=== PATIENT | female | born 1955 | race Hispanic/Latino ===

== ENCOUNTER 2018-04-10 22:05 | Emergency (ER) | payer SELFPAY ==
[2018-04-10 22:59] LABS: Basophils % (Auto) 0.5 % (0.0-1.8); Eosinophils # (Auto) 0.3 K/mm3 (0.0-0.4); Eosinophils % (Auto) 4.1 % (0.0-4.3); Hematocrit 39.5 % (30.3-42.9); Hemoglobin 13.9 gm/dl (10.1-14.3); Lymphocytes % (Auto) 44.2 % (13.4-35.0); Mean Corpuscular HGB Conc 35 % (30-34); Mean Corpuscular Hemoglobin 31 pg (28-32); Mean Corpuscular Volume 87 fl (79-97); Monocytes # (Auto) 0.4 K/mm3 (0.0-0.8); Monocytes % (Auto) 5.9 % (0.0-7.3); Platelet Count 160 K/mm3 (140-440); Red Blood Count 4.53 M/mm3 (3.65-5.03); Red Cell Distribution Width 13.8 % (13.2-15.2)
[2018-04-10 23:11] LABS: BUN/Creatinine Ratio 25; Blood Urea Nitrogen 15 mg/dL (7-17); Calcium 8.9 mg/dL (8.4-10.2); Hemolysis Index 12
[2018-04-10] MEDS ORDERED: VITAMIN B-1 100 MG, FOLVITE 1 MG, INFUVITE 10 ML, MAGNESIUM SULFATE 2 GM in NACL 0.9% 1... IV ONE (23:28)
--- NOTE | 2018-04-10 23:46 | Emergency Department Report ---
HPI - General Chief Complaint: Psych Time Seen by Provider: 04/10/18 23:21 - HPI HPI: Room 17 The patient is a 62-year-old female presenting with a chief complaint of suicidal ideation and alcoholism. The patient states she has felt suicidal for months but has not actually attempted to harm herself. The patient states she is "tired of drinking" and that she wants to end her life because life is not worth living. The patient states she had a plan to overdose or medication. Patient denies any past attempts at harming herself. The patient consumes approximately 1 pint of alcohol daily and last consumed alcohol at 21:30 today Location: Mental status, see above Duration: "Months" Quality: Suicidal Severity: Severe Modifying factors: [see above] Context: [see above] Mode of transportation: [not driving] ED Past Medical Hx - Past Medical History Previous Medical History?: Yes Hx Hypertension: Yes Additional medical history: Depression, [place] Palsy - Surgical History Past Surgical History?: Yes Additional Surgical History: Double mastectomy, hysterectomy - Family History Family history: no significant - Social History Smoking Status: Current Every Day Smoker (1 pack per day) Substance Use Type: Alcohol (1 pint of alcohol every other day) ED Review of Systems ROS: Stated complaint: MH EVAL Other details as noted in HPI Constitutional: no symptoms reported Eyes: denies: eye pain ENT: denies: throat pain Respiratory: no symptoms reported Cardiovascular: denies: chest pain Endocrine: no symptoms reported Gastrointestinal: denies: abdominal pain Genitourinary: denies: dysuria Musculoskeletal: denies: back pain Neurological: denies: headache Psychiatric: suicidal thoughts Physical Exam - Physical Exam Vital Signs: Vital Signs 04/10/18 22:08 Temperature 98.3 F Pulse Rate 105 H Respiratory 20 Rate Blood Pressure 121/61 O2 Sat by Pulse 93 Oximetry Physical Exam: GENERAL: The patient is well-developed well-nourished female lying on stretcher not appearing to be in acute distress. [] HEENT: Normocephalic. Atraumatic. Extraocular motions are intact. Patient has moist mucous membranes. NECK: Supple. Trachea midline CHEST/LUNGS: Clear to auscultation. There is no respiratory distress noted. HEART/CARDIOVASCULAR: Regular. There is no tachycardia. There is no gallop rub or murmur. ABDOMEN: Abdomen is soft, nontender. Patient has normal bowel sounds. There is no abdominal distention. SKIN: There is no rash. There is no edema. There is no diaphoresis. NEURO: The patient is awake, alert, and oriented. The patient is cooperative. The patient has normal speech MUSCULOSKELETAL: There is no evidence of acute injury. ED Course Vital Signs 04/10/18 22:08 Temperature 98.3 F Pulse Rate 105 H Respiratory 20 Rate Blood Pressure 121/61 O2 Sat by Pulse 93 Oximetry ED Medical Decision Making - Lab Data Result diagrams: 04/10/18 22:36 04/10/18 22:36 Laboratory Tests 04/10/18 04/10/18 04/10/18 22:36 22:36 22:36 WBC RBC Hgb Hct MCV MCH MCHC RDW Plt Count Lymph % (Auto) [place] % (Auto) Eos % (Auto) Baso % (Auto) Lymph # Shelby # Eos # Baso # Seg Neutrophils % Seg Neutrophils # Sodium 144 Potassium 4.1 Chloride 103.9 Carbon Dioxide 24 Anion Gap 20 BUN 15 Creatinine 0.6 L Estimated GFR > 60 BUN/Creatinine Ratio 25 Glucose 125 H Calcium 8.9 Total Bilirubin Direct Bilirubin Indirect Bilirubin AST ALT Alkaline Phosphatase Total Protein Albumin Albumin/Globulin Ratio Salicylates < 0.3 L Acetaminophen < 5.0 L Plasma/Serum Alcohol 04/10/18 04/10/18 04/10/18 22:36 22:36 22:36 WBC 6.9 RBC 4.53 Hgb 13.9 Hct 39.5 MCV 87 MCH 31 MCHC 35 H RDW 13.8 Plt Count 160 Lymph % (Auto) 44.2 H Shelby % (Auto) 5.9 Eos % (Auto) 4.1 Baso % (Auto) 0.5 Lymph # 3.0 Shelby # 0.4 Eos # 0.3 Baso # 0.0 Seg Neutrophils % 45.3 Seg Neutrophils # 3.1 Sodium Potassium Chloride Carbon Dioxide Anion Gap BUN Creatinine Estimated GFR BUN/Creatinine Ratio Glucose Calcium Total Bilirubin < 0.20 Direct Bilirubin < 0.2 Indirect Bilirubin 0.0 AST 23 ALT 25 Alkaline Phosphatase 83 Total Protein 6.9 Albumin 4.4 Albumin/Globulin Ratio 1.8 Salicylates Acetaminophen Plasma/Serum Alcohol 0.28 H - Differential Diagnosis suicidal ideation, alcoholism Critical care attestation.: If time is entered above; I have spent that time in minutes in the direct care of this critically ill patient, excluding procedure time. ED Disposition Clinical Impression: Suicidal ideation, Alcoholism Disposition: [id number]/TX-[id number] PSY HOSP/PSY UNIT Is pt being admited?: No Does the pt Need Aspirin: No Condition: Serious Referrals: PRIMARY CARE, [Primary Care Provider] - 3-5 Days Time of Disposition: 23:50 (awaiting acceptance)
[2018-04-10 23:50] LABS: Alanine Aminotransferase 25 units/L (7-56); Albumin 4.4 g/dL (3.9-5)
[2018-04-10 23:51] LABS: Bilirubin,Direct < 0.2 mg/dL (0-0.2)
[2018-04-11] MEDS ORDERED: ATIVAN IV PRN ×3 (01:37)
[2018-04-11 03:54] LABS: Bilirubin,Urine NEG (Negative); Blood,Urine NEG (Negative); Color,Urine Straw (Yellow); Mucus,Urine FEW /HPF; Protein,Urine <15 mg/dL mg/dL (Negative); Urobilinogen,Urine < 2.0 mg/dL (<2.0)
[2018-04-11 04:21] LABS: Amphetamine Screen,Urine PRESUMPTIVE NEGATIVE; Benzodiazepines Screen,Urine PRESUMPTIVE NEGATIVE; Cannabinoid Screen,Urine PRESUMPTIVE NEGATIVE; Cocaine Screen,Urine PRESUMPTIVE NEGATIVE; Methadone Screen,Urine PRESUMPTIVE NEGATIVE; Opiate Screen,Urine PRESUMPTIVE NEGATIVE
[2018-04-11] MEDS ORDERED: ZOFRAN ODT PO PRN (11:39)
--- NOTE | 2018-04-11 11:43 | Emergency Department Report ---
Blank Doc - Documentation Documentation: Past history patient for complaint of nausea this morning. Patient admitted last night with history of depression and recent suicidal ideation, awaiting placement for psychiatric services. She denies any suicide attempt, denies any ingestions, but has not eaten very much this morning because of nausea. She denies significant abdominal pain, has not vomited, no diarrhea. Only other complaint is that she feels her blood pressure is up, which nurse confirms, and BP was measured at 170/125, and patient takes lisinopril, but did not report at time of intake. On my examination, patient is awake, neurologically intact, no acute distress, abdomen is soft in all quadrants, nontender, chest is clear. We will give patient a snack, medicate for nausea with ondansetron, may repeat as needed on a every 12 hours basis, and will start patient on daily lisinopril dose at her usual doses of 20 mg. Further care as needed.
[2018-04-11] MEDS ORDERED: ZESTRIL PO SCH (12:00)
--- NOTE | 2018-04-11 13:07 | Consultation ---
History of Present Illness - Reason for Consult Consult date: 04/11/18 Reason for consult: Mental Health Evaluation Requesting physician: PRICE PATEL - Chief Complaint Chief complaint: "I have a lot going on" - History of Present Psychiatric Illness 62-year-old female presenting with a chief complaint of suicidal ideation and alcoholism. Today the patient is calm, but withdrawn during the assessment. She stated that she is going through a lot right now. She stated that it's related to "life stressors and other things." She did not want to discuss the issues when asked. She was vague about her alcohol use. She denies SI/HI's and AVH's. She stated a hx of depression and take Zoloft and Trazodone. She stated that her sleep has been erratic lately. She denies any manic episodes in the past and recreational drug use. Medications and Allergies Allergies Allergy/AdvReac Type Severity Reaction Status Date / Time sulfamethoxazole Allergy Itching Verified 04/10/18 22:14 [From Bactrim] trimethoprim [From Bactrim] Allergy Itching Verified 04/10/18 22:14 Home Medications Medication Instructions Recorded Confirmed Last Taken Type Unobtainable 04/11/18 04/11/18 Unknown History Active Meds: Active Medications Lisinopril (Zestril) 20 mg PO DAILY EDENILSON Last Admin: 04/11/18 12:50 Dose: 20 mg Lorazepam (Ativan) 2 mg IV Q1HR PRN PRN Reason: CIWA-Ar 8-15 Lorazepam (Ativan) 4 mg IV Q1HR PRN PRN Reason: CIWA-Ar 16-25 Lorazepam (Ativan) 4 mg IV Q15MIN PRN PRN Reason: CIWA-Ar >25 Ondansetron HCl (Zofran Odt) 8 mg PO Q12HR PRN PRN Reason: Nausea Last Admin: 04/11/18 12:51 Dose: 8 mg Past psychiatric history - Past Medical History Past Medical History: hypertension Past Surgical History: No surgical history - past Psychiatric treatment and history psychiatric treatment history: Hx of alcohol addiction and depression. Denies a fam psy hx. - Social History Social history: lives with family Mental Status Exam - Vital signs Last Vital Signs Temp 98.3 F 04/10/18 22:08 Pulse 105 H 08/23/18 22:08 Resp 18 04/10/18 23:29 BP 155/95 04/11/18 12:50 Pulse Ox 97 04/10/18 23:29 - Exam Narrative exam: MSE: Appearance: calm Behavior: poor eye contact Speech: regular rate and tone Mood: "depressed" withdrawn Affect: congruent to mood Thought Process: circumstantial Thought Content: denies SI/HI's and AVH's Motor Activity: ambulatory Cognition: A/O x 3 Insight: variable Judgment: variable Results Result Diagrams: 04/10/18 22:36 04/10/18 22:36 Abnormal lab results 04/10/18 04/10/18 04/10/18 Range/Units 22:36 22:36 22:36 MCHC (30-34) % Lymph % (Auto) (13.4-35.0) % Creatinine 0.6 L (0.7-1.2) mg/dL Glucose 125 H (65-100) mg/dL Salicylates < 0.3 L (2.8-20.0) mg/dL Acetaminophen < 5.0 L (10.0-30.0) ug/mL Plasma/Serum Alcohol (0-0.07) % 04/10/18 04/10/18 Range/Units 22:36 22:36 MCHC 35 H (30-34) % Lymph % (Auto) 44.2 H (13.4-35.0) % Creatinine (0.7-1.2) mg/dL Glucose (65-100) mg/dL Salicylates (2.8-20.0) mg/dL Acetaminophen (10.0-30.0) ug/mL Plasma/Serum Alcohol 0.28 H (0-0.07) % All other labs normal. Assessment and Plan Assessment and plan: Impression: Hx of Depression. Alcohol Use DO. Alcohol Intoxication. Today the patient is calm, but withdrawn during the assessment. The patient denies SI's, but she is very withdrawn and at this time. No acute withdrawals noted. DDx: R/O Alcohol Induced Mood DO Recommendation/Plan: Continue 1013, gather collateral information, and reassess the patient in 24 hours. Continue CIWA. Start Zoloft 50 mg PO daily for depression and Trazodone 50 mg PO HS for sleep. Discussed possible suicidality/ medication induced amador with patient reference antidepressants. Discussed the importance to abstain from alcohol consumption (etoh).
[2018-04-11] MEDS ORDERED: ZOLOFT PO SCH (14:00)
[2018-04-11 20:50] VITALS: BP 136/77
[2018-04-11] MEDS ORDERED: DESYREL PO SCH (22:00)
== END 2018-04-11 22:23 ==
LOC: ED 22:05
DX: F32.9 Major depressive disorder, single episode, unspecified (principal); F10.129 Alcohol abuse with intoxication, unspecified; G51.0 Bell's palsy; I10 Essential (primary) hypertension; F17.200 Nicotine dependence, unspecified, uncomplicated; Z90.710 Acquired absence of both cervix and uterus; Z88.2 Allergy status to sulfonamides
CPT/HCPCS: 36415; 80048; 80074; 80307; 81001; 85025; G0480; J3411; J3475; J7030; 80320; Q0162